=== PATIENT | male | born 1970 | race Hispanic/Latino ===

== ENCOUNTER 2021-02-07 14:10 | Emergency (ER) | payer OTHER, SELFPAY ==
[2021-02-07] MEDS ORDERED: Acetaminophen 325 MG TAB ONE (15:36)
== END 2021-02-07 16:10 | disposition home or self-care (01) ==
LOC: ERS 14:10
DX: S09.90XA Unspecified injury of head, initial encounter (principal); S16.1XXA Strain of muscle, fascia and tendon at neck level, initial encounter; V69.9XXA Occupant (driver) (passenger) of heavy transport vehicle injured in unspecified traffic accident, initial encounter
CPT/HCPCS: 70450; 72125